=== PATIENT | male | born 2000 ===

== ENCOUNTER 2024-08-10 12:40 | Outpatient (REF) | payer OTHER, SELFPAY ==
[2024-08-10 18:03] LABS: Influenza A PCR POSITIVE (Negative); Influenza B PCR NEGATIVE (Negative); Resp Syncy Virus RNA Qual PCR NEGATIVE (Negative); SARS COV2 PCR INHOUSE NEGATIVE (Negative)
== END 2024-08-10 12:41 | disposition home or self-care (01) ==
LOC: HO.LAB 12:40
PROVIDERS: Nurse Practitioner Family
DX: J06.9 Acute upper respiratory infection, unspecified (principal); R09.89 Other specified symptoms and signs involving the circulatory and respiratory systems
CPT/HCPCS: 0241U; 99212

== ENCOUNTER 2024-08-10 12:40 | Outpatient (AMB) | payer OTHER, SELFPAY ==
--- NOTE | 2024-08-10 13:16 | AM.OFFWIN_ITS ---
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 Patient Tobacco Use Status: Never used Tobacco Allergies methylphenidate [From Ritalin] Adverse Reaction (Mild, Verified 08/10/24 13:20) Unknown Do you need a note to return to daycare/school/sports/work: No HPI HPI Comments History of Present Illness Details 24 y/o male patient who presents to the walk in clinic with c/o URI symptoms since this morning. Pt lives in a assisted and goes to daycare. He was sent home with high fever of around 100.2F today associated with stuffy nose. He is accompanied by a detective investigator who provides history. Pt is non-verbal. PFSH Social History Patient Tobacco Use Status: Never used Tobacco Review of Systems Const All systems reviewed & are unremarkable except as noted in HPI and below Physical Exam Vital Signs: Last Vital Signs Temp 98.6 F 08/10/24 13:18 Pulse 66 08/10/24 13:18 BP 112/74 08/10/24 13:18 Pulse Ox 98 08/10/24 13:18 Oxygen Delivery Method Room Air 08/10/24 13:18 Const General: cooperative and no acute distress Nutritional Appearance: overweight HEENT Head: Yes normocephalic Ears: external ears normal and TM's normal bilaterally General nose exam: Normal external nose present Face and sinus: Yes sinuses nontender Mouth: moist mucous membranes Throat: Yes posterior oropharynx normal Resp Effort & Inspection: normal respiratory effort and able to speak in complete sentences Auscultation: clear to auscultation bilaterally, no crackles, no rales, no rhonchi and no wheezes Cardio Heart sounds: S1 normal heart sound present and S2 normal heart sound present Assessment & Plan Assessment & Plan (1) Acute respiratory disease: Code(s): J06.9 - Acute upper respiratory infection, unspecified Plan: Ordered SARs Acetaminophen for pain and fever relief Rest, no Daycare OTC remedies. Orders: Orders SARS-CoV2/FLU/RSV Today R09.89 - Other specified symptoms and signs involving the circulatory and respiratory systems Coding Level of Care Code Est Pt Level 3 (64695) Diagnoses Acute respiratory disease J06.9 Time Spent (min) 15
[2024-08-10 13:18] VITALS: BP 112/74; PULSE 66; TEMP 37; O2SAT 98
== END 2024-08-10 14:15 | disposition home or self-care (01) ==
PROVIDERS: Visit Provider Nurse Practitioner Family
DX: J06.9 Acute upper respiratory infection, unspecified (principal)